=== PATIENT | female | born 1955 | race African-American/Black ===

== ENCOUNTER → 2017-06-02 | Outpatient (CLI) | payer OTHER ==
[~2017-06-02] MED LIST: AMLODIPINE BESY10 MG PO; DILANTIN KAPSE100 MG PO; DILANTIN PO; FERROUS SULFATE PO; NORVASC PO; PROTONIX PO; WALGREENS PHARMACY; ZESTRIL10 M2 PO
--- NOTE | ~2017-06-02 | US6 ---
[facility] A Service of [facility] & [facility] RADIOLOGY TEXT RESULTS PATIENT: STEVIE MENJIVAR LOCATION: [facility] : 53 UNIT #: [id number] AGE: [address]: John Jenkins MD SEX: F ORDER DR: [id number] [facility] [address] [place], [place] [address] [id number] O MR#: [id number] Acc #: [id number] NAME: STEVIE MENJIVAR : 1955 SEX: F STUDY DATE/TIME: 06/02/2017 11:30 UNIT: [facility] ROOM: STUDY DESCRIPTION: US Abdominal Limited Attending Physician: John Jenkins M.D. Referring Physician: John Jenkins M.D. Ordering Physician: John Jenkins M.D. [facility] This report is preliminary unless electronic signature is present EXAM Right upper quadrant ultrasound INDICATION Right upper quadrant pain for 3 days. TECHNIQUE Flores scale and color Doppler sonographic images were obtained through the upper quadrant. FINDINGS Visualized portion of the pancreas appear unremarkable. No focal hepatic lesions are seen. There is no intra or extrahepatic biliary dilatation. Right kidney appears somewhat echogenic which could reflect some underlying medical renal disease. There is a cyst seen within the superior pole of the right kidney. A second hypoechoic structure is seen within the mid portion of the right kidney measuring 1.3 x 1.5 x 1.1 cm. This appears to have some internal debris within it, and I would suggest further evaluation with renal protocol CT or MRI. Multiple shadowing stones are seen within the gallbladder, but there is no gallbladder wall thickening or pericholecystic fluid. IMPRESSION. 1. Cholelithiasis without evidence of acute cholecystitis. 2. Overall, the right kidney appears somewhat echogenic. This could reflect some underlying medical renal disease. 3. Patient has a cyst within the superior pole of the right kidney. A second hypoechoic structure seen within the mid portion of the right kidney, but it is not definitively a simple cyst. I would suggest further evaluation with renal protocol CT or MRI. Dictated by... [facility] A Service of [facility] & [facility] RADIOLOGY TEXT RESULTS PATIENT: STEVIE MENJIVAR LOCATION: [facility] : 53 UNIT #: [id number] AGE: [address]: John Jenkins MD SEX: F ORDER DR: Francesca Call M.D. THIS IS AN ELECTRONICALLY VERIFIED REPORT Francesca Call M.D. at 06/03/2017 5:07 PM AFF/ea TD: 06/03/2017 03:49 JOB #: [id number] MEDICAL IMAGING REPORT Page 1 of 1 COPY
[2017-06-02 11:15] LABS: HEMATOCRIT 52.8 % (35.0-45.0); HEMOGLOBIN 17.2 gm/dL (12.0-16.0); MEAN CELL VOLUME 91.7 FL (83-96); MEAN CORPUSCULAR HEMOGLOBIN 29.9 PG (28-34); MEAN CORPUSCULAR HGB CONC 32.6 g/dL (30-36); MEAN PLATELET VOLUME 8.9 FL (6.5-11.5); RED BLOOD COUNT 5.76 X10e (3.90-5.30); RED CELL DISTRIBUTION WIDTH 14.1 % (11.0-15.5); WHITE BLOOD COUNT 4.8 X10e3 (4.0-10.5)
[2017-06-02 12:20] LABS: ALBUMIN SERUM 4.4 g/dL (3.5-5.0); BILIRUBIN,TOTAL 0.3 mg/dL (0.2-2.0); BUN/CREATININE RATIO 14.44; CALCIUM SERUM 10.2 mg/dL (8.4-10.2); CREATININE SERUM 0.9 mg/dL (0.6-1.4); GLOM FILT RATE Estimated 78.9 mL/min (>60); POTASSIUM 5.1 mmol/L (3.5-5.1); PROTEIN TOTAL SERUM 7.4 g/dL (6.0-8.3)
== END | disposition home or self-care (01) ==
LOC: CGUS 10:30
PROVIDERS: Internal Medicine
DX: R10.11 Right upper quadrant pain (principal); K80.20 Calculus of gallbladder without cholecystitis without obstruction; N28.1 Cyst of kidney, acquired; R93.421 Abnormal radiologic findings on diagnostic imaging of right kidney
CPT/HCPCS: 36415; 76705; 80053; 82150; 83690; 85027